=== PATIENT | male | born 1985 | race Caucasian/White ===

== ENCOUNTER 2018-05-28 18:21 | Inpatient (IN) | payer BC, OTHER ==
[~2018-05-28] VITALS: Ht 180.3 cm; Wt 72.6 kg
[2018-05-29] MEDS ORDERED: SRC ALCOHOL WITHDRAWAL ADMITTING PROTOCOL XX PRN (01:00)
[2018-05-29] MEDS ORDERED: THIAMINE HCL 200 MG/2 ML VIAL IM ONE (01:15)
[2018-05-29] MEDS ORDERED: CLONIDINE HCL 0.1 MG TABLET PO PRN (01:15)
[2018-05-29] MEDS ORDERED: MAGNESIUM HYDROXIDE 30 ML LIQUID UDC PO PRN (01:15)
[2018-05-29] MEDS ORDERED: HYDROXYZINE PAMOATE 25 MG CAPSULE PO PRN (01:15)
[2018-05-29] MEDS ORDERED: LORAZEPAM 2 MG/1 ML VIAL IM PRN (01:15)
[2018-05-29] MEDS ORDERED: IBUPROFEN 600 MG TABLET PO PRN (01:15)
[2018-05-29] MEDS ORDERED: ONDANSETRON ODT 4 MG TAB.RAPDIS SL PRN (01:15)
[2018-05-29] MEDS ORDERED: MIRALAX 17 GM POWD.PACK PO PRN (01:15)
[2018-05-29] MEDS ORDERED: ONDANSETRON 4 MG/2 ML VIAL IM PRN (01:15)
[2018-05-29] MEDS ORDERED: diphenhydrAMINE 50 MG CAPSULE PO PRN (01:15)
[2018-05-29] MEDS ORDERED: MAG HYDROX/AL HYDROX/SIMETH 30 ML LIQUID UDC PO PRN (01:15)
[2018-05-29] MEDS ORDERED: LORAZEPAM 1 MG TABLET PO PRN ×2 (01:15)
[2018-05-29] MEDS ORDERED: LOPERAMIDE HCL 2 MG CAPSULE PO PRN ×2 (01:15)
[2018-05-29] MEDS ORDERED: ACETAMINOPHEN 325 MG TABLET PO PRN (01:15)
[2018-05-29 01:23] LABS: BASOPHILS # (AUTO) 0.1 K/uL (0.0-8.0); BASOPHILS % (AUTO) 1.3 % (0.0-2.0); EOSINOPHILS # (AUTO) 0.1 K/uL (0.0-0.7); EOSINOPHILS % (AUTO) 2.8 % (0.0-7.0); HEMATOCRIT 41.7 % (36.7-47.1); HEMOGLOBIN 14.6 g/dL (12.5-16.3); LYMPHOCYTES # (AUTO) 1.6 K/uL (20.0-40.0); LYMPHOCYTES % (AUTO) 33.8 % (20.5-51.5); MEAN CORPUSCULAR HEMOGLOBIN 33.1 uug (23.8-33.4); MEAN CORPUSCULAR HGB CONC 35 g/dL (32.5-36.3); MEAN CORPUSCULAR VOLUME 94.5 fL (73.0-96.2); MONOCYTES # (AUTO) 0.4 K/uL (2.0-10.0); MONOCYTES % (AUTO) 9.3 % (0.0-11.0); NEUTROPHILS # (AUTO) 2.5 K/uL (1.8-8.9); NEUTROPHILS % (AUTO) 52.8 % (38.5-71.5); PLATELET COUNT (AUTO) 121 K/uL (152-348); RED BLOOD CELL COUNT(AUTO) 4.42 MIL/uL (4.06-5.63); WHITE BLOOD COUNT (AUTO) 4.6 K/uL (3.6-10.2)
[2018-05-29 01:30] LABS: *AMPHETAMINE, URINE NEGATIVE (NEGATIVE); *BARBITURATE, URINE NEGATIVE (NEGATIVE); *CANNABINOID, URINE POSITIVE (NEGATIVE); *COCCAINE, URINE NEGATIVE (NEGATIVE); *OPIATE, URINE NEGATIVE (NEGATIVE); *PHENCYCLIDINE SCREEN,URINE NEGATIVE (NEGATIVE)
[2018-05-29 01:36] LABS: ALANINE AMINOTRANSFERASE 254 U/L (16-63); ALKALINE PHOSPHATASE 36 U/L (50-136); AMYLASE 61 U/L (25-115); ASPARTATE AMINOTRANSFERASE 265 U/L (15-37); BILIRUBIN,TOTAL 0.4 mg/dL (0.2-1.0); CARBON DIOXIDE 26 mmol/L (21-32); CHLORIDE 101 mmol/L (98-107); CREATININE 0.7 mg/dL (0.6-1.3); ETHANOL 296 MG/DL (0-0); GLUCOSE 101 mg/dL (74-106); LIPASE 253 U/L (73-393); POTASSIUM 2.9 mmol/L (3.5-5.1); TOTAL PROTEIN, SERUM 8.7 g/dL (6.4-8.2); UREA NITROGEN, BLOOD 3 mg/dL (7-18)
[2018-05-29 01:47] LABS: THYROID STIMULATING HORMONE 3.335 mIU/mL (0.358-3.740)
[2018-05-29 04:00] VITALS: BP 136/82
[2018-05-29 08:00] VITALS: BP 120/70
[2018-05-29] MEDS: THIAMINE HCL 100 MG TABLET PO SCH (08:59)
[2018-05-29] MEDS: MULTIVITAMINS,THERAPEUTIC TABLET PO SCH (08:59)
[2018-05-29] MEDS: FOLIC ACID 1 MG TABLET PO SCH (09:00)
[2018-05-29] MEDS ORDERED: POTASSIUM CHLORIDE 20 MEQ TAB.PRT.SR PO ONE (09:00)
[2018-05-29] MEDS ORDERED: 5 DAY TAPER OF LORAZEPAM -SERENITY PROTOCOL PO PRN (11:45)
[2018-05-29 12:00] VITALS: BP 129/79
[2018-05-29] MEDS: LORAZEPAM 1 MG TABLET PO SCH ×2 (14:02→21:01)
[2018-05-29 16:00] VITALS: BP 125/65
[2018-05-29 18:17] LABS: CREATININE 0.8 mg/dL (0.6-1.3); POTASSIUM 3.8 mmol/L (3.5-5.1)
[2018-05-29 20:57] VITALS: BP 136/68
[2018-05-30 00:30] VITALS: BP 119/73
[2018-05-30 08:00] VITALS: BP 116/79
[2018-05-30 08:04] LABS: ALANINE AMINOTRANSFERASE 187 U/L (16-63); ALKALINE PHOSPHATASE 40 U/L (50-136); ASPARTATE AMINOTRANSFERASE 154 U/L (15-37); BILIRUBIN,TOTAL 1.1 mg/dL (0.2-1.0); CARBON DIOXIDE 27 mmol/L (21-32); CHLORIDE 100 mmol/L (98-107); CREATININE 0.7 mg/dL (0.6-1.3); GLUCOSE 97 mg/dL (74-106); MAGNESIUM 1.6 mg/dL (1.8-2.4); POTASSIUM 3.8 mmol/L (3.5-5.1); TOTAL PROTEIN, SERUM 7.1 g/dL (6.4-8.2); UREA NITROGEN, BLOOD 7 mg/dL (7-18)
[2018-05-30 08:07] LABS: HEPATITIS B SURFACE AG Negative (Negative)
[2018-05-30] MEDS: THIAMINE HCL 100 MG TABLET PO SCH (08:30)
[2018-05-30] MEDS: MULTIVITAMINS,THERAPEUTIC TABLET PO SCH (08:30)
[2018-05-30] MEDS: FOLIC ACID 1 MG TABLET PO SCH (08:30)
[2018-05-30] MEDS: LORAZEPAM 1 MG TABLET PO SCH ×4 (08:32→20:34)
[2018-05-30] MEDS ORDERED: MULTIVITAMINS,THERAPEUTIC TABLET PO SCH (09:00)
[2018-05-30] MEDS ORDERED: TUBERCULIN,PURIF.PROT.DERIV. 5 TU/0.1 ML TEST ID ONE (09:00)
[2018-05-30] MEDS ORDERED: FOLIC ACID 1 MG TABLET PO SCH (09:00)
[2018-05-30] MEDS ORDERED: THIAMINE HCL 100 MG TABLET PO SCH (09:00)
[2018-05-30] MEDS ORDERED: MAGNESIUM OXIDE 400 MG TABLET PO ONE (11:15)
[2018-05-30 12:00] VITALS: BP 126/75
[2018-05-30 16:00] VITALS: BP 125/72
[2018-05-30 20:00] VITALS: BP 120/79
[2018-05-31] VITALS: BP 118/69
[2018-05-31 04:00] VITALS: BP 108/63
[2018-05-31 07:12] LABS: CREATININE 0.8 mg/dL (0.6-1.3); MAGNESIUM 1.9 mg/dL (1.8-2.4); POTASSIUM 4.2 mmol/L (3.5-5.1)
[2018-05-31 08:30] VITALS: BP 122/78
[2018-05-31] MEDS: THIAMINE HCL 100 MG TABLET PO SCH (09:12)
[2018-05-31] MEDS: FOLIC ACID 1 MG TABLET PO SCH (09:12)
[2018-05-31] MEDS: LORAZEPAM 1 MG TABLET PO SCH ×3 (09:12→20:17)
[2018-05-31] MEDS: MULTIVITAMINS,THERAPEUTIC TABLET PO SCH (09:12)
[2018-05-31 12:25] VITALS: BP 125/74
[2018-05-31 16:28] VITALS: BP 126/90
[2018-05-31 20:14] VITALS: BP 125/70
[2018-06-01 08:17] VITALS: BP 138/77
[2018-06-01] MEDS: LORAZEPAM 1 MG TABLET PO SCH ×2 (08:31→20:45)
[2018-06-01] MEDS: FOLIC ACID 1 MG TABLET PO SCH (08:31)
[2018-06-01] MEDS: THIAMINE HCL 100 MG TABLET PO SCH (08:31)
[2018-06-01] MEDS: MULTIVITAMINS,THERAPEUTIC TABLET PO SCH (08:31)
[2018-06-01 12:55] VITALS: BP 133/78
[2018-06-01 16:56] VITALS: BP 135/76
[2018-06-01 20:00] VITALS: BP 145/85
[2018-06-02 08:00] VITALS: BP 135/71
[2018-06-02] MEDS: FOLIC ACID 1 MG TABLET PO SCH (08:31)
[2018-06-02] MEDS: MULTIVITAMINS,THERAPEUTIC TABLET PO SCH (08:31)
[2018-06-02] MEDS: THIAMINE HCL 100 MG TABLET PO SCH (08:31)
[2018-06-02] MEDS ORDERED: LORAZEPAM 1 MG TABLET PO SCH (09:00)
[2018-06-02 12:00] VITALS: BP 131/83
[2018-06-02 16:00] VITALS: BP 138/90
[2018-06-02 20:00] VITALS: BP 136/87
[2018-06-03] VITALS: BP 124/79
[2018-06-03 04:00] VITALS: BP 116/78
[2018-06-03 08:00] VITALS: BP 114/79
[2018-06-03] MEDS: THIAMINE HCL 100 MG TABLET PO SCH (08:56)
[2018-06-03] MEDS: MULTIVITAMINS,THERAPEUTIC TABLET PO SCH (08:57)
[2018-06-03] MEDS: FOLIC ACID 1 MG TABLET PO SCH (08:57)
[2018-06-03 12:00] VITALS: BP 144/84
[2018-06-03] MEDS ORDERED: NICOTINE POLACRILEX 4 MG GUM-PK OF TEN BC PRN (14:00)
[2018-06-03 16:00] VITALS: BP 135/86
[2018-06-03 20:06] VITALS: BP 139/88
[2018-06-04] VITALS: BP 119/74
[2018-06-04 08:00] VITALS: BP 121/68
[2018-06-04] MEDS: FOLIC ACID 1 MG TABLET PO SCH (09:30)
[2018-06-04] MEDS: MULTIVITAMINS,THERAPEUTIC TABLET PO SCH (09:30)
[2018-06-04] MEDS: THIAMINE HCL 100 MG TABLET PO SCH (09:31)
[2018-06-04 12:00] VITALS: BP 132/68
[2018-06-04 18:13] VITALS: BP 132/76
[2018-06-04 20:00] VITALS: BP 125/71
[2018-06-05 08:00] VITALS: BP 119/69
[2018-06-05] MEDS: FOLIC ACID 1 MG TABLET PO SCH (09:02)
[2018-06-05] MEDS: THIAMINE HCL 100 MG TABLET PO SCH (09:02)
[2018-06-05] MEDS: MULTIVITAMINS,THERAPEUTIC TABLET PO SCH (09:02)
== END 2018-06-05 09:48 | disposition other institution (70) | DRG 895 ==
LOC: SRC 22:58
PROVIDERS: ADMIT Family Medicine Addiction Medicine; ATTEND Family Medicine Addiction Medicine
PROC: HZ2ZZZZ Detoxification Services for Substance Abuse Treatment (ICD-10-PCS; principal; 2018-05-28)
PROC: HZ31ZZZ Individual Counseling for Substance Abuse Treatment, Behavioral (ICD-10-PCS; 2018-05-30)
PROC: HZ41ZZZ Group Counseling for Substance Abuse Treatment, Behavioral (ICD-10-PCS; 2018-05-30)
DX: F10.230 Alcohol dependence with withdrawal, uncomplicated (principal); G40.509 Epileptic seizures related to external causes, not intractable, without status epilepticus; F10.220 Alcohol dependence with intoxication, uncomplicated; Y90.8 Blood alcohol level of 240 mg/100 ml or more; E83.42 Hypomagnesemia; F17.210 Nicotine dependence, cigarettes, uncomplicated; F41.1 Generalized anxiety disorder; Z81.1 Family history of alcohol abuse and dependence; Z63.0 Problems in relationship with spouse or partner; R74.0 Nonspecific elevation of levels of transaminase and lactic acid dehydrogenase [LDH]; E87.6 Hypokalemia; Z91.14 Patient's other noncompliance with medication regimen
CPT/HCPCS: 36415; 70030-TC; 80307; 80349; 83690; 83735; 84443; 85025; 86580; 86592; 86705; 86803; 87340; 87806; G0480